=== PATIENT | female | born 1990 | race American Indian/Alaskan Native ===

== ENCOUNTER 2019-12-05 18:18 | Emergency (ER) | payer SELFPAY ==
--- NOTE | 2019-12-05 18:19 | Event Note ---
ED Screening Note ED Screening Note: pain in neck sp fall This initial assessment/diagnostic orders/clinical plan/treatment(s) is/are subject to change based on patients health status, clinical progression and re- assessment by fellow clinical providers in the ED. Further treatment and workup at subsequent clinical providers discretion. Patient/guardian urged not to elope from the ED as their condition may be serious if not clinically assessed and managed. Initial orders include: xray
[2019-12-05 18:25] VITALS: BP 153/78
--- NOTE | 2019-12-05 18:27 | Emergency Department Report ---
ED Neck Pain/Injury HPI - General Chief Complaint: Fall Stated Complaint: NECK INJURY Time Seen by Provider: 12/05/19 18:18 Source: patient Mode of arrival: Ambulatory Limitations: No Limitations - History of Present Illness Initial Comments: Patient is a 29-year-old -[place] female who comes to the ER after falling down the steps yesterday. She is complaining of neck pain with a burning sensation down her left arm. patient denies any LOC. She has no lacerations or abrasions. No contusions. Patient is ambulatory in the ER. She arrives via POV. Complaint: neck pain - Related Data Previous Rx's Medication Instructions Recorded Last Taken Type Cyclobenzaprine [Flexeril] 10 mg PO TID PRN #10 tablet 12/05/19 Unknown Rx Ibuprofen [Motrin] 800 mg PO Q8HR PRN #30 tablet 12/05/19 Unknown Rx predniSONE [Deltasone] 20 mg PO DAILY #5 tablet 12/05/19 Unknown Rx Allergies Allergy/AdvReac Type Severity Reaction Status Date / Time No Known Allergies Allergy Unverified 12/05/19 18:20 ED Review of Systems ROS: Stated complaint: NECK INJURY Other details as noted in HPI Comment: All other systems reviewed and negative ED Past Medical Hx - Past Medical History Previous Medical History?: No - Surgical History Past Surgical History?: Yes Additional Surgical History: d&c after miscarriage - Family History Family history: no significant - Social History Smoking Status: Never Smoker Substance Use Type: None - Medications Home Medications: Home Medications Medication Instructions Recorded Confirmed Last Taken Type Cyclobenzaprine [Flexeril] 10 mg PO TID PRN #10 tablet 12/05/19 Unknown Rx Ibuprofen [Motrin] 800 mg PO Q8HR PRN #30 tablet 12/05/19 Unknown Rx predniSONE [Deltasone] 20 mg PO DAILY #5 tablet 12/05/19 Unknown Rx ED Physical Exam - General Limitations: No Limitations General appearance: alert, in no apparent distress - Head Head exam: Present: atraumatic, normocephalic - Eye Eye exam: Present: normal appearance - ENT ENT exam: Present: mucous membranes moist - Neck Neck exam: Present: normal inspection - Respiratory Respiratory exam: Present: normal lung sounds bilaterally. Absent: respiratory distress - Cardiovascular Cardiovascular Exam: Present: regular rate, normal rhythm. Absent: systolic murmur, diastolic murmur, rubs, gallop - GI/Abdominal GI/Abdominal exam: Present: soft, normal bowel sounds - Extremities Exam Extremities exam: Present: normal inspection - Back Exam Back exam: Present: normal inspection - Neurological Exam Neurological exam: Present: alert, oriented X3 - Psychiatric Psychiatric exam: Present: normal affect, normal mood - Skin Skin exam: Present: warm, dry, intact, normal color. Absent: rash ED Course Vital Signs 12/05/19 12/05/19 12/05/19 18:21 18:23 19:12 Temperature 99.2 F 99.2 F Pulse Rate 83 89 Respiratory 16 18 18 Rate Blood Pressure 153/78 153/78 O2 Sat by Pulse 95 97 Oximetry ED Medical Decision Making - Radiology Data Radiology results: report reviewed, image reviewed - Medical Decision Making CT noted. Patient medicated for pain in the emergency room. Patient being discharged home with follow-up with orthopedics. Patient verbalizes understanding of discharge plan of care. Patient is neurovascularly intact with normal vital signs. Vital Signs 12/05/19 12/05/19 12/05/19 18:21 18:23 19:12 Temperature 99.2 F 99.2 F Pulse Rate 83 89 Respiratory 16 18 18 Rate Blood Pressure 153/78 153/78 O2 Sat by Pulse 95 97 Oximetry - Differential Diagnosis Rule out closed head injury and spinal injury Critical care attestation.: If time is entered above; I have spent that time in minutes in the direct care of this critically ill patient, excluding procedure time. ED Disposition Clinical Impression: Fall, Neck strain Disposition: DC-01 TO HOME OR SELFCARE Is pt being admited?: No Does the pt Need Aspirin: No Condition: Stable Instructions: Muscle Strain (ED) Additional Instructions: MEDS ORDERED WARM COMPRESSES FOLLOW UP WITH PCP REFERRAL BELOW Prescriptions: predniSONE [Deltasone] 20 mg PO DAILY #5 tablet Cyclobenzaprine [Flexeril] 10 mg PO TID PRN #10 tablet PRN Reason: Muscle Spasm Ibuprofen [Motrin] 800 mg PO Q8HR PRN #30 tablet PRN Reason: Pain, Moderate (4-6) Referrals: HARLEY MARIN MD [Primary Care Provider] - 3-5 Days MATHEUS WANG MD [Staff Physician] - 3-5 Days Time of Disposition: 19:59
[2019-12-05] MEDS ORDERED: IBUPROFEN 800 MG TAB PO ONE (18:28)
[2019-12-05] MEDS ORDERED: CYCLOBENZAPRINE 10 MG TAB PO ONE (18:28)
[2019-12-05] MEDS ORDERED: predniSONE 20 MG TAB PO ONE (18:28)
--- NOTE | 2019-12-05 19:38 | Cat Scan Report ---
NONENHANCED CT SCAN OF THE HEAD: INDICATION / CLINICAL INFORMATION: 29 years Female; MAIN: pain sp fall, pain to posterior neck and hands. TECHNIQUE: Routine CT head without contrast. All CT scans at this location are performed using CT dos e reduction for ALARA by means of automated exposure control. COMPARISON: None. FINDINGS: BRAIN / INTRACRANIAL CONTENTS: No intracranial sequela from the trauma; no scalp hematoma; no air-flu id level in the visualized portions of the paranasal sinuses. No acute hemorrhage, mass effect, midline shift, hydrocephalus, or acute, large territorial infarct. No chronic infarct or focal atrophy. Normal brain volume and ventricular/sulcal size for age. No sig nificant white matter abnormality. CRANIOCERVICAL JUNCTION: No significant abnormality. ORBITS: No significant abnormality of visualized orbits. SINUSES / MASTOIDS: No significant abnormality of the visualized paranasal sinuses or mastoid air sonia ls. ADDITIONAL FINDINGS: Empty sella IMPRESSION: No intracranial sequela from the trauma. Signer Name: Kingston Lim MD Signed: 12/05/2019 7:34 PM Workstation Name: [id number] ([id number]
--- NOTE | 2019-12-05 19:55 | Cat Scan Report ---
Exam: CT cervical spine History: MAIN: pain sp fall, pain to posterior neck and hands; Technique: Contiguous thin cut axial images obtained through the cervical spine. Sagittal and gil l reconstructions performed by the technologist. All CT scans at this location are performed using CT dose reduction for ALARA by means of automated exposure control. Findings: No priors. There is no evidence of fracture or traumatic subluxation. Vertebral bodies are normal in height and alignment. Intervertebral disc heights are normal. However, midline disc protrusion is seen at C3-C4 and C4-C5 d isc levels. C5-C6 and C6-C7 disc levels are normal. No significant degenerative change seen in the uncinate or facet joints. Left neuroforamen at C4-C5 d isc level is narrowed. Other neuroforamina are normal. Surrounding soft tissues are grossly normal. Impression: No signs of acute bony trauma to the cervical spine. Signer Name: Kingston Lim MD Signed: 12/05/2019 7:50 PM Workstation Name: [id number]
== END 2019-12-05 20:20 | disposition home or self-care (01) ==
LOC: ED 18:18
DX: S16.1XXA Strain of muscle, fascia and tendon at neck level, initial encounter (principal); Z98.890 Other specified postprocedural states; Z79.1 Long term (current) use of non-steroidal anti-inflammatories (NSAID); Z79.899 Other long term (current) drug therapy; W10.9XXA Fall (on) (from) unspecified stairs and steps, initial encounter; Y93.89 Activity, other specified; Y92.89 Other specified places as the place of occurrence of the external cause; Y99.8 Other external cause status
CPT/HCPCS: 70450; 72125; 99283; J7512